=== PATIENT | female | born 1945 | race Two or more races ===

== ENCOUNTER 2016-12-06 19:57 | Emergency (ER) | payer MEDICAID ==
[~2016-12-06] VITALS: Ht 165.1 cm; Wt 72.6 kg
[~2016-12-06 19:57] MED LIST: AMLO5TAB4 PO; CALC667C PO; CLON0.1T PO; ESOM40CA PO; FAMO40TA70 PO; FLUO20CA36 PO; FOLI0.8T2 PO; HYDR-4076 PO; LOSA50TA3 PO; NIFE20CA PO
[2016-12-06 20:01] VITALS: BP 193/71
[2016-12-06] MEDS ORDERED: HYDROCODONE/APAP 5/325MG 1 EACH TABLET PO ONE (20:30)
[2016-12-06] MEDS ORDERED: HYDROCODONE/APAP 5/325MG 1 EACH TABLET ONE (20:36)
== END 2016-12-06 21:34 | disposition home or self-care (01) ==
LOC: ER 19:58
DX: H92.02 Otalgia, left ear (principal); I12.0 Hypertensive chronic kidney disease with stage 5 chronic kidney disease or end stage renal disease; N18.6 End stage renal disease; Z99.2 Dependence on renal dialysis; E11.9 Type 2 diabetes mellitus without complications; F41.9 Anxiety disorder, unspecified; F32.9 Major depressive disorder, single episode, unspecified; Z88.1 Allergy status to other antibiotic agents
CPT/HCPCS: A4606; Z7610

== ENCOUNTER 2017-08-21 22:02 | Inpatient (IN) | payer MEDICAID ==
[~2017-08-21] VITALS: Ht 157.5 cm; Wt 68.9 kg
--- NOTE | 2017-08-21 22:05 | NUR ---
TO BED 2 [facility]IB [facility] C/O ABDOMINAL PAIN WITH N/V X2 DAYS. PT AAOX4 NO ACUTE DISTRESS NOTED, RESP EVEN AND UNLABORED. PLACE PT ON CARDIAC MONITORING, CONTINUOUS POX, O2@2L/NC. PENDING ER MD SIMMONS.
--- NOTE | 2017-08-21 22:20 | NUR ---
PLACE PT ON EXTERNAL PACER PADS PER ER MD ORDER.
--- NOTE | 2017-08-21 22:20 | NUR ---
FINESSE PT HR-30. ER MADE AWARE. JOVAN GUTIÉRREZ AT BEDSIDE TO IRIS PT.
[2017-08-21] MEDS ORDERED: Calcium Gluconate 0.465 MEQ/ML VIAL IV ONE (22:37)
[2017-08-21] MEDS ORDERED: ONDANSETRON HCL/PF 4 MG/2 ML VIAL ONE (22:39)
--- NOTE | 2017-08-21 22:44 | NUR ---
RN AT BEDSIDE TO MEDICATE PT.
[2017-08-21 22:46] LABS: BASOPHILS % (AUTO) 0.4 % (0.0-2.0); EOSINOPHILS # (AUTO) 0.2 /CMM (0.0-0.7); EOSINOPHILS % (AUTO) 3.7 % (0.0-6.0); HEMATOCRIT 37 % (33-45); HEMOGLOBIN 12.2 g/dL (11.5-14.8); LYMPHOCYTES # (AUTO) 1.2 /CMM (0.8-4.8); MEAN CORPUSCULAR HEMOGLOBIN 31 PG (26.0-33.0); MEAN CORPUSCULAR HGB CONC 34 g/dl (31.0-36.0); MEAN CORPUSCULAR VOLUME 93 fL (82-100); MONOCYTES # (AUTO) 0.5 /CMM (0.1-1.30); MONOCYTES % (AUTO) 7.3 % (2.0-12.0); NEUTROPHILS # (AUTO) 4.8 /CMM (1.8-8.9); NEUTROPHILS % (AUTO) 71.6 % (43.0-81.0); PLATELET COUNT (AUTO) 154 /CMM (150-450); WHITE BLOOD COUNT (AUTO) 6.8 K/uL (4.3-11.0)
--- NOTE | 2017-08-21 22:49 | NUR ---
MEDICATED PT ORDERED BY MD. GARNICA NOTED, RESP EVEN AND UNLABORED.
--- NOTE | 2017-08-21 22:51 | NUR ---
XRAY AT BEDSIDE
[2017-08-21] MEDS ORDERED: IV NS 0.9% 500 ML BAG IV ONE (23:00)
[2017-08-21] MEDS ORDERED: SODIUM BICARBONATE SYR 50 MEQ/50 ML DISP.SYRIN IV ONE (23:00)
[2017-08-21] MEDS ORDERED: ONDANSETRON HCL/PF - ER 4 MG/2 ML VIAL IV ONE (23:00)
[2017-08-21] MEDS ORDERED: Calcium Gluconate 1GM/10ML 4.65 MEQ in IV D5W 50 ML IV ONE (23:00)
[2017-08-21 23:01] LABS: INR 0.96 (0.87-1.13)
[2017-08-21 23:07] LABS: TROPONIN I 0.038 ng/mL (0.00-0.056)
[2017-08-21 23:10] LABS: ALBUMIN 3.7 g/dL (3.4-5.0); BILIRUBIN,DIRECT 0.1 mg/dL (0.0-0.2); BILIRUBIN,TOTAL 0.4 mg/dL (0.2-1.0); CALCIUM, SERUM 7.5 mg/dL (8.5-10.1); TOTAL PROTEIN, SERUM 8.3 g/dL (6.4-8.2)
[2017-08-21 23:11] LABS: POTASSIUM 7.4 mmol/L (3.5-5.1)
[2017-08-21 23:12] LABS: CREATININE 10.8 mg/dL (0.6-1.3)
[2017-08-21 23:16] LABS: D-DIMER 0.67 mg/L(FEU (0.17-0.50)
--- NOTE | 2017-08-21 23:17 | NUR ---
DR. MAGO NEVES PER ER ORDER.
--- NOTE | 2017-08-21 23:17 | NUR ---
PT RESTING QUIETLY, NAD NOTES/RESP EVEN AND UNLABORED.
--- NOTE | 2017-08-21 23:17 | NUR ---
CRITICAL LABS REPORTED TO
--- NOTE | 2017-08-21 23:20 | NUR ---
ER TALKING TO DR. MERCEDES REGARDING PT ADMISSION.
[2017-08-21] MEDS ORDERED: DEXTROSE 50%-WATER 50 ML DISP.SYRIN ONE ×2 (23:21→23:23)
[2017-08-21] MEDS ORDERED: INSULIN REGULAR, HUMAN 100 UNIT/ML 10 ML VIAL ONE (23:21)
[2017-08-21] MEDS ORDERED: VIT1TABL46 PO (23:22)
[2017-08-21] MEDS ORDERED: NA P133E RC (23:22)
[2017-08-21] MEDS ORDERED: MAGN2400 PO (23:22)
[2017-08-21] MEDS ORDERED: CHOL200026 PO (23:22)
[2017-08-21] MEDS ORDERED: DORZ10DR11 EACHEYE (23:22)
[2017-08-21] MEDS ORDERED: PANT40TA2 PO (23:22)
[2017-08-21] MEDS ORDERED: ACET325T53 PO (23:22)
[2017-08-21] MEDS ORDERED: METO-295 PO (23:22)
[2017-08-21] MEDS ORDERED: MINO2.5T PO (23:22)
[2017-08-21] MEDS ORDERED: BISA10SU8 RC (23:22)
[2017-08-21] MEDS ORDERED: SODIUM POLYSTYRENE SULFONATE 15 G/60 ML BOTTLE ONE (23:23)
[2017-08-21] MEDS ORDERED: SODIUM POLYSTYRENE SULFONATE 15 G/60 ML BOTTLE PO ONE (23:30)
[2017-08-21] MEDS ORDERED: DEXTROSE 50%-WATER 50 ML DISP.SYRIN IVP ONE (23:30)
[2017-08-21] MEDS ORDERED: INSULIN REGULAR, HUMAN 100 UNIT/ML 10 ML VIAL IV ONE (23:30)
--- NOTE | 2017-08-21 23:30 | NUR ---
ER MD SPOKE TO DR. PATEL REGARDING PT ADMISSION. WILL CALL FOR REPORT.
--- NOTE | 2017-08-21 23:49 | NUR ---
REPORT CALLED TO SUPERVISOR PHOSPHORUS PROCESSING ED. WILL TRANSPORT PT VIA ACLS PROTOCOL.
[2017-08-22] VITALS (27 sets, daily range): BP systolic 117–187; BP diastolic 42–79
[2017-08-22] MEDS ORDERED: DEXTROSE 50%-WATER 50 ML DISP.SYRIN IV PRN (00:30)
--- NOTE | 2017-08-22 00:30 | NUR ---
WASHHOUSE HAND - REC'D PT. FROM [facility]. PT. IS BEING ADMITTED FOR ESRD, HYPERKALEMIA (K+ AT 7.4) AND 3RD DEGREE HEART BLOCK. PT.IS MALTESE SPEAKING ONLY. Calvin INTERPRETED FOR COMMUNICATION. HEART MONITOR SHOWS 3RD DEG.BLOCK/HR-38-50'S. PT.IS ASYMPTOMATIC. SBP'S ARE IN THE TEENS TO 140'S. PT.IS ON R/A WITH O2 SATS AT 98%. PT. HAS A RENAL DIET ORDERED. ANURIC/DIAPER ON. AHMED - DX RN IS ON HIS WAY IN. AFEBRILE. ALL PULSES PALPABLE X 4 EXT. PT. HAS AN AMPUTATED 2ND TOE ON LEFT FOOT & AMPUTATED 4TH TOE ON RT. FOOT. NO SKIN BREAKDOWN NOTED. ORDERS REC'D FROM DR. PATEL. ORDERS DOCUMENTED BY OBIEE REPORT DEVELOPER - ED. PT.IS A HARD STICK. ONE PIV TO RFA-18G/PATENT TO FLUSH X 2 PORTS. LFA AV FISTULA HAS GOOD BRUIT-GOOD THRILL. PT.IS REFUSING TO REMOVE PANTS. CONT. POC.
[2017-08-22 04:32] LABS: BASOPHILS % (AUTO) 0.1 % (0.0-2.0); EOSINOPHILS # (AUTO) 0.3 /CMM (0.0-0.7); EOSINOPHILS % (AUTO) 4.2 % (0.0-6.0); HEMATOCRIT 33 % (33-45); HEMOGLOBIN 11.1 g/dL (11.5-14.8); LYMPHOCYTES # (AUTO) 1.1 /CMM (0.8-4.8); LYMPHOCYTES % (AUTO) 15.5 % (20.0-44.0); MEAN CORPUSCULAR HEMOGLOBIN 32 PG (26.0-33.0); MEAN CORPUSCULAR HGB CONC 34 g/dl (31.0-36.0); MEAN CORPUSCULAR VOLUME 94 fL (82-100); MONOCYTES # (AUTO) 0.6 /CMM (0.1-1.30); MONOCYTES % (AUTO) 8.6 % (2.0-12.0); NEUTROPHILS % (AUTO) 71.6 % (43.0-81.0); PLATELET COUNT (AUTO) 139 /CMM (150-450); RDW COEFFICIENT OF VARIATION 15.2 (11.5-15.0); WHITE BLOOD COUNT (AUTO) 6.9 K/uL (4.3-11.0)
[2017-08-22 05:00] LABS: CALCIUM, SERUM 7.5 mg/dL (8.5-10.1); CREATININE 6.8 mg/dL (0.6-1.3); POTASSIUM 4.2 mmol/L (3.5-5.1)
[2017-08-22] MEDS ORDERED: BLOOD SUGAR DIAGNOSTIC 1 EACH STRIP IN SCH (07:30)
--- NOTE | 2017-08-22 07:31 | NUR ---
INITIAL FILING AND POLISHING SUPERVISOR NOTE RCVD PT AWAKE AND ALERT SHOWING NO S/O DISTRESS OR VERBALIZING ANY PAIN. HUNGARIAN SPEAKING ONLY. SR ON TELE. ON RA TOLERATING WELL. IV ACCESS ON RIGHT FA #18 C/D/I/PATENT. NO S/O INFILTRATION/PHLEBITIS OBSERVED UPON FLUSHING. WILL CONTINUE TO MONITOR PT FOR SAFETY AND COMFORT. CALL LIGHT WITHIN REACH. BED IN LOW AND LOCKED POSITION.
[2017-08-22] MEDS: BLOOD SUGAR DIAGNOSTIC 1 EACH STRIP IN SCH ×4 (08:49→22:56)
[2017-08-22] MEDS: ASPIRIN 81 MG TAB.CHEW PO SCH (08:50)
[2017-08-22] MEDS: ACETAMINOPHEN 325 MG TABLET PO PRN (10:30)
--- NOTE | 2017-08-22 15:25 | NUR ---
ASSOCIATE JAVA DEVELOPER NOTE DR. PATEL IN UNIT UPDATED ON PT'S CONDITION, HE RECOMMENDED TO DOWNGRADE PT TO TELE STATUS.
--- NOTE | 2017-08-22 16:26 | NUR ---
HERBICIDE SERVICE SALES REPRESENTATIVE NOTE PT HAVING BLOODY NOSE GIVEN LUBRICANT TO APPLY TO NOSTRILS. WILL CONTINUE TO MONITOR.
--- NOTE | 2017-08-22 18:39 | NUR ---
TRANSFER PUMP OPERATOR NOTE PT TRANSFERRED TO [facility] UNDER TELE STATUS PER PROTOCOL. PT SHOWING NO S/O DISTRESS/PAIN. VITAL SIGNS STABLE PENDING DIALYSIS TX PER DR. POTTS. REPORT GIVEN OVER THE PHONE TO MARLEEN KEARNS. PT TRANSPORTED WITH ALL BELONGINGS, NO PERSONAL ITEMS LEFT IN ROOM.
--- NOTE | 2017-08-22 18:52 | NUR ---
RN NOTE PATIENT TRANSFERRED TO [facility] ON TELE , PATIENT READING SINUS RHYTHM WITH BUNDLE BRANCH BLOCK PATIENT IS LAO SPEAKING ALERT AND ORIENT BROUGHT TO UNIT IN BED UPON ADMISSION INTO THE UNIT NURSING STAFF ORIENTED THE PATIENT TO THE UNIT , PATIENT ADMITTED FOR ESRD AND HYPERKALEMIA , PATIENT PM CBG 116 , ADMISSION B/P ELEVATED 181/59 PULSE 78, O2 94 ON ROOM AIR AND RESP 17 NO DISTRESS NOTED , NO COMPLAINTS AT THIS TIME RN WILL ENDORSE PM CARE TO PM RN , PATIENT COMFORTABLE AND NEEDS MEED. IV ACCESS INCLUDES R FOREARM 18G L FOREARM SHUNT HD
[2017-08-22] MEDS: INSULIN REGULAR, HUMAN 100 UNIT/ML 3 ML VIAL SQ PRN (22:58)
[2017-08-23] VITALS: BP 169/61
[2017-08-23 04:00] VITALS: BP 177/72
[2017-08-23 06:32] LABS: BASOPHILS % (AUTO) 0.3 % (0.0-2.0); EOSINOPHILS # (AUTO) 0.5 /CMM (0.0-0.7); HEMATOCRIT 33 % (33-45); HEMOGLOBIN 11.3 g/dL (11.5-14.8); LYMPHOCYTES # (AUTO) 1.2 /CMM (0.8-4.8); LYMPHOCYTES % (AUTO) 19.8 % (20.0-44.0); MEAN CORPUSCULAR HEMOGLOBIN 32 PG (26.0-33.0); MEAN CORPUSCULAR HGB CONC 34 g/dl (31.0-36.0); MEAN CORPUSCULAR VOLUME 93 fL (82-100); MONOCYTES # (AUTO) 0.7 /CMM (0.1-1.30); MONOCYTES % (AUTO) 10.9 % (2.0-12.0); NEUTROPHILS # (AUTO) 3.8 /CMM (1.8-8.9); PLATELET COUNT (AUTO) 132 /CMM (150-450); RDW COEFFICIENT OF VARIATION 14.6 (11.5-15.0); RED BLOOD CELL COUNT(AUTO) 3.58 MIL/uL (4.0-5.2); WHITE BLOOD COUNT (AUTO) 6.2 K/uL (4.3-11.0)
--- NOTE | 2017-08-23 07:37 | NUR ---
MOTORBOAT MECHANIC INBOARD NOTES RN RECEIVED PATIENT SLEEPING IN BED NO ISSUES NOTED ,BREATHING EVEN AND UNLABORED. NO SOB NOTED. NO ACUTE DISTRESS NOTED. PT ON TELE MONITOR SR W/BBB. RFA 18G INTACT/CLEAN. HD CATH ([facility]) IS INTACT. PT GOWN CLEAN , ALL NEEDS ATTENDED. SAFETY MEASURE OBSERVED. CALL LIGHT WITH IN REACH. RN WILL CONT TO MONITOR PATIENT THROUGHOUT THE DAY .
[2017-08-23 07:52] LABS: CALCIUM, SERUM 6.4 mg/dL (8.5-10.1); MAGNESIUM 2.2 mg/dL (1.8-2.4); POTASSIUM 5.1 mmol/L (3.5-5.1)
[2017-08-23 07:54] LABS: CREATININE 9.2 mg/dL (0.6-1.3)
[2017-08-23 08:00] VITALS: BP 175/77
[2017-08-23] MEDS: ASPIRIN 81 MG TAB.CHEW PO SCH (08:45)
[2017-08-23] MEDS: BLOOD SUGAR DIAGNOSTIC 1 EACH STRIP IN SCH ×4 (08:46→22:40)
--- NOTE | 2017-08-23 10:04 | NUR ---
WOUND CARE CONSULT PATIENT SEEN AND SKIN INTEGRITY ASSESSMENT DONE. PLEASE SEE VENDING TECHNICIAN ASSESSMENT IN PCS FOR TODAY. PATIENT WITH CORINNA AT 17, CURRENTLY INDEPENDENT WITH BED MOBILITY AND HAS OCCASIONAL INCONT. RECOMMEND PODIATRY CONSULT FOR LEFT FOOT PLANTAR ESCHAR POA. WILL SEE PRN. GUTIÉRREZ IN AGREEMENT WITH PLAN OF CARE. Addendum: 08/23/17 at 1006 by SHERON OMER WNDNU Amended: Links added.
[2017-08-23] MEDS ORDERED: Z GUARD REMEDY 2 OZ OINT TP PRN (10:30)
[2017-08-23] MEDS: INSULIN REGULAR, HUMAN 100 UNIT/ML 3 ML VIAL SQ PRN (12:00)
[2017-08-23 16:00] VITALS: BP 162/72
[2017-08-23 16:16] VITALS: BP 162/72
--- NOTE | 2017-08-23 18:36 | NUR ---
RN NOTE PATIENT B/P TO ELEVATED FOR TRANSFER EMS WILL NOT TRANSPORT PATIENT B/P 199/86 . BP MEDICATION WILL BE ADMINISTERED AND THEN PATIENT WILL BE PLACE ON WILL CALL . CHARGE NURSE NOTIFIED AND FACILITY NOTIFIED, [facility] STATES THEY WILL ONLY TAKE THE PATIENT IF B/P LOWER THAN 150
--- NOTE | 2017-08-23 18:57 | NUR ---
RN CLOSING NOTE PATIENT B/P ELEVATED B/P MEDICATION TO BE ADMINSTERED PRIOR TO 715PM PATIENT IN BED NO COMPLAINS OF HEADACHE OR SOB, PATIENT ON WILL CALL CHARGE NURSE NOTIFIED RN WILL ENDORSE CARE TO PM RN , RN CONTACTED PHARMACY TO VERIFY MEDICATION ORDERS IN SO THAT MEDICATION CAN BE GIVEN TO THE PATIENT SOON POSSIBLE . CONTINUATION OF CARE WILL BE ENDORSED
[2017-08-23] MEDS: ISOSORBIDE DINITRATE (10MG) 10 MG TABLET PO SCH (19:05)
[2017-08-23] MEDS: hydrALAZINE HCL 50 MG TABLET PO SCH (19:05)
[2017-08-23 20:00] VITALS: BP 157/69
[2017-08-24 04:00] VITALS: BP 178/66
--- NOTE | 2017-08-24 07:15 | NUR ---
RN NOTE PT REMAINS IN NO ACUTE DISTRESS IN BED. PT DID NOT HAVE ANY SIGNIFICANT CHANGE IN CONDITION DURING SHIFT. ALL NEEDS MET, ALL ORDERS CARRIED OUT. WILL ENDORSE CARE TO AM RN FOR CONTINUITY OF CARE.
[2017-08-24] MEDS: BLOOD SUGAR DIAGNOSTIC 1 EACH STRIP IN SCH (07:30)
--- NOTE | 2017-08-24 07:42 | NUR ---
CENTRAL SUPPLY WORKER INITIAL NOTES RN RECEIVED PATIENT SLEEPING IN BED NO ISSUES NOTED ,BREATHING EVEN AND UNLABORED. NO SOB NOTED. NO ACUTE DISTRESS NOTED. NO IV ACCESS PATIENT PENDING DISCHARGE. HD CATH ([facility]) IS INTACT. PT GOWN CLEAN , ALL NEEDS ATTENDED. SAFETY MEASURE OBSERVED. CALL LIGHT WITH IN REACH. RN WILL CONT TO MONITOR PATIENT B/P AND PREP FOR D/C .
[2017-08-24 08:00] VITALS: BP 94/50
[2017-08-24 08:07] VITALS: BP 94/50
[2017-08-24] MEDS: hydrALAZINE HCL 50 MG TABLET PO SCH (09:00)
[2017-08-24] MEDS: ACETAMINOPHEN 325 MG TABLET PO PRN (09:57)
[2017-08-24 10:02] VITALS: BP 195/69
[2017-08-24] MEDS: ISOSORBIDE DINITRATE (10MG) 10 MG TABLET PO SCH (10:02)
[2017-08-24] MEDS: ASPIRIN 81 MG TAB.CHEW PO SCH (10:02)
[2017-08-24] MEDS ORDERED: SODIUM BICARBONATE SYR 50 MEQ/50 ML DISP.SYRIN IV ONE (12:06)
--- NOTE | 2017-08-24 12:06 | NUR ---
RN CLOSING NOTE PATIENT DISCHARGED [facility] TO [facility] , PATIENT VITALS STABLE AND [facility]NL [facility] ENSURE VITALS WERE WNL PRIOR TO D/C PATIENT TRANSITIONED [facility] EMS WITHOUT ISSUE , CHARGE NURSE UPDATED [facility] ABOUT THE PATIENT DISCHARGE , CHARGE NURSE ASSESSED IN DISCHARGE
[2017-08-24] MEDS ORDERED: hydrALAZINE HCL 50 MG TABLET PO SCH (18:37)
== END 2017-08-24 12:07 | DRG 469 ==
LOC: ER 22:03 → ICU 23:47 → TELE1 08-22 18:26 → MEDSG1 08-23 08:10
PROVIDERS: ADMIT Internal Medicine; ATTEND Internal Medicine
PROC: 5A1D70Z Performance of Urinary Filtration, Intermittent, Less than 6 Hours Per Day (ICD-10-PCS; principal; 2017-08-21)
DX: N17.9 Acute kidney failure, unspecified (principal); I12.0 Hypertensive chronic kidney disease with stage 5 chronic kidney disease or end stage renal disease; E11.22 Type 2 diabetes mellitus with diabetic chronic kidney disease; E87.5 Hyperkalemia; N18.6 End stage renal disease; Z99.2 Dependence on renal dialysis; D64.9 Anemia, unspecified; Z89.422 Acquired absence of other left toe(s); Z89.421 Acquired absence of other right toe(s); Z79.899 Other long term (current) drug therapy; Z88.1 Allergy status to other antibiotic agents; T44.5X5A Adverse effect of predominantly beta-adrenoreceptor agonists, initial encounter; Y92.129 Unspecified place in nursing home as the place of occurrence of the external cause; I25.10 Atherosclerotic heart disease of native coronary artery without angina pectoris; K21.9 Gastro-esophageal reflux disease without esophagitis; K59.00 Constipation, unspecified; I49.9 Cardiac arrhythmia, unspecified; A08.4 Viral intestinal infection, unspecified; I45.9 Conduction disorder, unspecified
CPT/HCPCS: 36415; 71010-TC; 74022-TC; 80048-TC; 80076-TC; 82962-TC; 83735-TC; 83880; 84100-TC; 84484-TC; 85025-TC; 85378-TC; 85730-TC; 87081-TC; 90935-TC; A4606; A6402; J0610; J1815; J2405; J3490; J7030; J7040; J7060; Z7610